=== PATIENT | male | born 1935 | race Caucasian/White ===

== ENCOUNTER 2019-03-28 12:23 | Outpatient (RCR) | payer MEDICARE, SELFPAY ==
[2019-03-28 12:31] LABS: Add Urine Microscopic? NO
[2019-03-28 13:32] LABS: Bilirubin Urine Neg (NEGATIVE); Blood Urine Neg (Negative); Glucose Urine UA 1+ (Normal); Ketones Urine Negative (Negative); Leukocyte Esterase Urine Negative (Negative); Nitrate Urine Negative (Negative); Protein Urine Neg (Negative); Urine Appearance Clear (CLEAR); Urine Color Yellow (Yellow); Urobilinogen Urine Norm (Negative)
== END 2019-04-08 23:59 | disposition home or self-care (01) ==
LOC: LAB 12:23
PROVIDERS: Visit Provider Dermatology
DX: N39.0 Urinary tract infection, site not specified (principal); G89.29 Other chronic pain
CPT/HCPCS: 81003; 87086